=== PATIENT | female | born 1975 | race Caucasian/White ===

== ENCOUNTER → 2024-06-24 11:29 | Outpatient (BNVA) | payer OTHER, SELFPAY | PROVIDERS: Referring Provider Family Medicine; Visit Provider Specialist | DX: G20.C Parkinsonism, unspecified (principal); E66.01 Morbid (severe) obesity due to excess calories; E11.40 Type 2 diabetes mellitus with diabetic neuropathy, unspecified | CPT/HCPCS: 36415; 82607 ==